=== PATIENT | male | born 1970 | race Caucasian/White ===

== ENCOUNTER 2025-06-07 00:35 | Day surgery (SDC) | payer BC, SELFPAY ==
[2025-05-29 14:49] VITALS: BMI 41.6
[2025-06-07 08:08] VITALS: BP 139/88; PULSE 87; RESP 16; TEMP 36.6; O2SAT 100; BMI 41.8
--- NOTE | 2025-06-07 08:28 | WPDANESEPPF ---
Anes - Initial Pre Proc Eval Procedure: Operation Date: 06/07/25 09:30 Proposed Procedures p Screening Colonoscopy - Jimbo Zhang MD Date/Time: 06/07/25 08:28 Surgeon: Jimbo Zhang MD Pre Op Diagnosis: screening/positive Cologuard Patient Data Age: 55 Gender: M Height: 1.75 m Weight: 128.6 kg Last Vital Signs Temp 36.6 C 06/07/25 08:08 Pulse 87 06/07/25 08:08 Resp 16 06/07/25 08:08 BP 139/88 06/07/25 08:08 Pulse Ox 100 06/07/25 08:08 O2 Del Method Room Air 06/07/25 08:08 Allergies Allergy/AdvReac Type Severity Reaction Status Date / Time No Known Allergies Allergy Verified 06/07/25 08:16 Home Medications ?Medication ?Instructions ?Recorded ?Confirmed ?Type amlodipine 10 mg tablet 10 mg PO DAILY 05/29/25 06/07/25 History aspirin 81 mg tablet,delayed 81 mg PO DAILY 05/29/25 06/07/25 History release hydrochlorothiazide 25 mg tablet 25 mg PO DAILY 05/29/25 06/07/25 History metformin 500 mg tablet,extended 500 mg PO DAILY 05/29/25 06/07/25 History release 24 hr potassium chloride 20 mEq 20 meq PO DAILY 05/29/25 06/07/25 History tablet,extended release(part/cryst) rosuvastatin 20 mg tablet 20 mg PO DAILY 05/29/25 06/07/25 History Patient hx anesthesia problems: none Family hx anesthesia problems: none Results Review: All pre-operative results and documents have been reviewed as part of the pre-operative evaluation. COUNTS INCLUDE 234 BEDS AT [facility] Past Medical History Medical History (Updated 06/07/25 @ 08:29 by Alexis Villafuerte MD) Diabetes HTN (hypertension) Morbid obesity Social History Social History Living arrangements: with family Spiritual care concerns: No Anes - Eval Final PreProcedure Day of Procedure 06/07/25 08:28 Patient weight: morbidly obese Heart: regular rate and rhythm Lungs: clear to auscultation Airway: Mallampati scale class II Neurological: alert and oriented Last oral intake: >/= 8 hours ASA classification: III Emergent: no Anesthetic plan: proceed Anesthesia type and monitoring: general GIVS and standard monitoring Results Review: All pre-operative results and documents have been reviewed as part of the pre-operative evaluation. Informed Consent: The patient's anesthetic plan and its attendant risks and benefits were discussed with the patient/family/POA. Questions were solicited and answers provided to the satisfaction of the patient/family/POA.
[2025-06-07] MEDS: LACTATED RINGERS 1,000 ML 150 ML IV CONT (08:36)
--- NOTE | 2025-06-07 09:15 | PM.IMHP ---
H&P: HPI History of Present Illness Date/Time: 06/07/25 09:15 Chief Complaint: Positive Cologuard test Narrative: This is the patient's first colonoscopy. He recently had a positive Cologuard test. There are no GI symptoms and there is no family history of colorectal cancer. Review of Systems Review of Systems: All systems reviewed & are unremarkable except as noted in HPI and below PMFSH Past Medical History Medical History (Updated 06/07/25 @ 09:16 by Jimbo Zhang MD) Diabetes HTN (hypertension) Morbid obesity Social History Social History Living arrangements: with family Spiritual care concerns: No Meds Home Medications and Allergies Home Medications ?Medication ?Instructions ?Recorded ?Confirmed ?Type amlodipine 10 mg tablet 10 mg PO DAILY 05/29/25 06/07/25 History aspirin 81 mg tablet,delayed 81 mg PO DAILY 05/29/25 06/07/25 History release hydrochlorothiazide 25 mg tablet 25 mg PO DAILY 05/29/25 06/07/25 History metformin 500 mg tablet,extended 500 mg PO DAILY 05/29/25 06/07/25 History release 24 hr potassium chloride 20 mEq 20 meq PO DAILY 05/29/25 06/07/25 History tablet,extended release(part/cryst) rosuvastatin 20 mg tablet 20 mg PO DAILY 05/29/25 06/07/25 History Allergies Allergy/AdvReac Type Severity Reaction Status Date / Time No Known Allergies Allergy Verified 06/07/25 08:16 Vital Signs Vital Signs - 24 hr 06/07/25 08:08 Temperature 97.8 F Pulse Rate 87 Respiratory Rate 16 Blood Pressure 139/88 Pulse Oximetry 100 Oxygen Delivery Room Air Exam Const: General: cooperative and healthy appearing Resp: Effort & Inspection: normal respiratory effort and able to speak in complete sentences Auscultation: clear to auscultation bilaterally Cardio: Rate: regular rate Rhythm: regular rhythm GI: Inspection: normal to inspection GI Palp: No No hepatosplenomegaly present Auscultation: normal bowel sounds Rectal Exam: deferred Skin: General skin exam: normal color Psych: Appearance: grossly normal Mental Status: mental status grossly normal Assessment and Plan Assessment and plan (1) Positive colorectal cancer screening using Cologuard test: Code(s): R19.5 - Other fecal abnormalities Status: Acute Assessment and Plan: The patient is deemed a good candidate for the procedure. Consent signed. Will proceed.
--- NOTE | 2025-06-07 09:47 | S_PTH ---
PATIENT: Darren Gary LOC: [facility]#:[id number] AGE/SX: 55/M ROOM: RE06/07/[address]: Jimbo Zhang MD : 1970 BED: DIS: 06/07/2025 SPEC #: [id number] RECD: 06/07/25 10:46 STATUS: BRIGITTE REQ #: [id number] MARILIA: 06/07/25 09:[address]: Jimbo Zhang DEPT: [facility] Surgical RECD BY: Lisa Cagle ENTERED: 06/07/25 10:46 SP TYPE: Surgical OTHR DR: Edi Shaver MAlesia Tissues: A - Colon Polypectomy Procedures: Hematoxylin and Eosin Stain Gross and Microscopic Level 4
[2025-06-07 09:51] VITALS: BP 113/70; PULSE 74; RESP 21; O2SAT 95
[2025-06-07 10:01] VITALS: BP 114/75; PULSE 70; RESP 22; O2SAT 96
[2025-06-07 10:11] VITALS: BP 116/80; PULSE 66; RESP 20; O2SAT 98
== END 2025-06-07 10:25 | disposition home or self-care (01) ==
PROVIDERS: PCP Internal Medicine Infectious Disease; Visit Provider Internal Medicine Gastroenterology
PROC: 0DJD8ZZ Inspection of Lower Intestinal Tract, Via Natural or Artificial Opening Endoscopic (ICD-10-PCS; CPT 45378; principal; 2025-06-07 09:30)
DX: Z12.11 Encounter for screening for malignant neoplasm of colon (principal); D12.5 Benign neoplasm of sigmoid colon; R19.5 Other fecal abnormalities; K57.30 Diverticulosis of large intestine without perforation or abscess without bleeding; E11.9 Type 2 diabetes mellitus without complications
CPT/HCPCS: 45385; 82948; 88305; J2003; J2704; J7120